=== PATIENT | female | born 1975 | race Caucasian/White ===

== ENCOUNTER 2017-05-24 13:34 | Outpatient (CLI) | payer MEDICAID ==
[~2017-05-24] VITALS: Ht 167.6 cm; Wt 122.9 kg
[2017-05-24] MEDS ORDERED: LISI40TA4 PO (14:32)
[2017-05-24] MEDS ORDERED: METF500T7 PO (14:32)
[2017-05-24] MEDS ORDERED: MELO-100 PO (14:32)
[2017-05-24] MEDS ORDERED: HYDR25TA4 PO (14:32)
[2017-05-24] MEDS ORDERED: GLYB5TAB7 PO (14:32)
[2017-05-24] MEDS ORDERED: SIMV20TA PO (14:32)
[2017-05-24 15:07] LABS: BASOPHILS # (AUTO) 0.1 X10'3 (0-0.2); BASOPHILS % (AUTO) 0.7 % (0-1); EOSINOPHILS # (AUTO) 0.2 X10'3 (0-0.9); EOSINOPHILS % (AUTO) 2.2 % (0-6); LYMPHOCYTES # (AUTO) 2.3 X10'3 (1.1-4.8); LYMPHOCYTES % (AUTO) 23.9 % (21-51); MEAN CORPUSCULAR HEMOGLOBIN 28.7 PG (27.0-31.0); MEAN CORPUSCULAR VOLUME 84.4 FL (78-98); MEAN PLATELET VOLUME 8.8 FL (7.4-10.4); MONOCYTES # (AUTO) 0.6 X10'3 (0-0.9); MONOCYTES % (AUTO) 5.8 % (2-12); NEUTROPHILS # (AUTO) 6.4 X10'3 (1.8-7.7); NEUTROPHILS % (AUTO) 67.4 % (42-75); PRE OP HEMATOCRIT 47.9 % (35.0-45.0); PRE OP HEMOGLOBIN 16.3 g/dL (12.0-16.0); PRE OP PLATELET COUNT 200 X10'3 (140-440); RED BLOOD COUNT 5.67 X10'6 (4.20-5.60); RED CELL DISTRIBUTION WIDTH 13.6 % (11.5-14.5)
[2017-05-24 15:17] LABS: HEMOGLOBIN A1C 7.6 % (4.5-6.2)
[2017-05-24 15:31] LABS: ALBUMIN 3.6 G/DL (3.4-5.0); ALBUMIN/GLOBULIN RATIO 0.9 (1.1-1.5); ALKALINE PHOSPHATASE 63 IU/L (46-116); BLOOD UREA NITROGEN 17 MG/DL (7-18); CALCIUM 9.5 MG/DL (8.5-10.1); CHLORIDE 106 MMOL/L (99-107); CREATININE 0.81 MG/DL (0.40-0.90); PRE OP ALT 32 U/L (30-65); PRE OP ANION GAP 10 (8-16); PRE OP AST 11 U/L (10-37); PRE OP BILIRUB, TOTAL 0.4 MG/DL (0.0-1.0); PRE OP GLUCOSE 92 MG/DL (70-104); PRE OP POTASSIUM 3.7 MMOL/L (3.4-5.1); PRE OP SODIUM 142 MMOL/L (135-145); TOTAL CARBON DIOXIDE 25.9 MMOL/L (24-32); TOTAL PROTEIN 7.6 G/DL (6.4-8.2); eGFR 77 ML/MIN
[2017-05-26] MEDS ORDERED: ringers solution, lacted 1,000 ML IV SCH (05:00)
[2017-05-26] MEDS ORDERED: metoclopramide 5 mg/ml inj IV ONE (05:30)
[2017-05-26] MEDS ORDERED: vancomycin inj 1,500 MG in normal saline 300ml IV soln IV ONE (05:30)
[2017-05-26] MEDS ORDERED: famotidine 20mg tablet PO ONE (05:30)
[2017-05-26] MEDS ORDERED: tranexamic acid inj. 1,000 MG in normal saline 100ml IV soln 90 ML IV ONE (05:30)
[2017-05-26] MEDS ORDERED: acetaminophen 325mg tablet PO ONE (05:30)
[2017-05-26] MEDS ORDERED: oxyCODONE SR 10mg (sust. release) tab PO ONE (05:30)
[2017-05-26] MEDS ORDERED: ceFAZolin inj. 3,000 MG in normal saline 100ml IV soln 100 ML IV ONE (05:30)
[2017-05-26] MEDS ORDERED: gabapentin 300mg capsule PO ONE (05:30)
== END 2017-05-24 23:59 | disposition home or self-care (01) ==
LOC: PRE-OP 13:34 → EDSTATUS 05-26 07:30
PROVIDERS: ATTEND Orthopaedic Surgery
DX: Z01.818 Encounter for other preprocedural examination (principal); M16.11 Unilateral primary osteoarthritis, right hip; Z96.641 Presence of right artificial hip joint
CPT/HCPCS: 36415; 80053; 83036; 85025; 86885; 86900; 86901; 87070; 93005; J0690; J7030; J7120

== ENCOUNTER 2019-12-22 14:08 | Emergency (ER) | payer MEDICAID ==
[~2019-12-22 14:08] MED LIST: GLYB5TAB7 PO; HYDR25TA4 PO; LISI40TA4 PO; MELO-100 PO; METF-900 PO; SIMV20TA PO
[2019-12-22 14:31] LABS: ISTAT HGB 11.9 g/dl (12.0-16.0); ISTAT IONIZED CALCIUM 1.11 mmol/L (1.03-1.32)
--- NOTE | 2019-12-22 14:37 | NUR ---
[facility] WAS CALLED TO REPORT .
--- NOTE | 2019-12-22 14:38 | NUR ---
FILIBERTO FROM [facility]ICE RETURNED CALL. INFORMATION GIVEN. DORCAS MCCARTHY, [facility] OFFICE WILL BE COMING. VERY BUSY TODAY, WILL BE HERE SOON HE CAN.
--- NOTE | 2019-12-22 14:45 | NUR ---
[facility]POKE WITH LYLA. . INFORMED US PT NOT A CANDIDATE DUE TO HER WEIGHT.
--- NOTE | 2019-12-22 15:05 | NUR ---
BINH AND I SPOKE WITH ANDRES, PT BOYFRIEND. 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 WENT OVER MORTUARIES. ANDRES SHARED WITH US THAT PT HAD NOT SEEN A DOCTOR IN A YEAR. AND SHE HAD EXPERIENCED INCREASED WEAKNESS FOR THE PAST YEAR.. 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 HX: HTN. PT WAS ALSO ON PAIN MEDS.
--- NOTE | 2019-12-22 15:15 | NUR ---
PT WAS TAKEN OUT FOOD AND DRINKS TO THE CAR AND DID NOT WANT TO COME IN TO SEE IMELDA. ANDRES SAID SISTER IN LAW ON HER WAY TO HOSPITAL. THEY HAD MOVED OUT HERE FROM [place] AND LIVING WITH SISTER IN LAW.
[2019-12-22 15:58] LABS: ISTAT K 7.3 mmol/L (3.5-5.1)
--- NOTE | 2019-12-22 16:30 | NUR ---
PT INLAWS ARE HERE. DENICE [phone], HOME [phone]
--- NOTE | 2019-12-22 17:05 | NUR ---
CREDIT RISK ANALYST DORCAS KABA CALLED AND WAS GIVEN INFORMATION AND HX OF PT. DORCAS IS NOW TALKING WITH FAMILY MEMBERS.
--- NOTE | 2019-12-22 17:13 | NUR ---
CORRECTION ON PHONE NUMBER [phone]
--- NOTE | 2019-12-22 17:24 | NUR ---
DORCAS VIRTUAL RECRUITER RELEASED PATIENT AND TO MAKE ARRANGEMENTS FOR MORTUARY TO TECHNICAL MANAGER PT. TWO FAMILY MEMBERS IN ROOM SAYING GOODBYE TO PT. GREIVING APPROPRIATELY.
--- NOTE | 2019-12-22 17:44 | NUR ---
DENICE RELEASED BODY TO MUNIR RODGERS. ONE SILVER SHAPED RING GIVEN TO HIM. WILL CONTACT MUNIR TO MANAGER INVENTORY MANAGEMENT PT.
--- NOTE | 2019-12-22 17:47 | NUR ---
CALLED MUNIR LEFT MESSAGE ON RECORDED.
--- NOTE | 2019-12-22 17:53 | NUR ---
MICK FROM [facility] CALLED BACK WILL COME GET PT. ALSO PROVIDED FAMILY PHONE NUMBER DENICE
[2019-12-22] MEDS ORDERED: SIMV-42 PO (18:54)
[2019-12-22] MEDS ORDERED: LISI-600 PO (18:54)
[2019-12-22] MEDS ORDERED: GLYB5TAB7 PO (18:54)
[2019-12-22] MEDS ORDERED: OMEP-50 PO (18:54)
[2019-12-22] MEDS ORDERED: METF-438 PO (18:54)
[2019-12-22] MEDS ORDERED: FLUT16SP26 (18:54)
== END 2019-12-22 20:23 | disposition expired ==
LOC: EDBD 14:08 → ER 14:10
DX: I46.9 Cardiac arrest, cause unspecified (principal); E87.6 Hypokalemia; E11.9 Type 2 diabetes mellitus without complications; Z79.899 Other long term (current) drug therapy
CPT/HCPCS: 31500; 80047; 82948; 92950; 94760; 99285; 99291